=== PATIENT | male | born 1955 | race African-American/Black ===

== ENCOUNTER 2016-08-17 14:01 | Emergency (ER) | payer MEDICARE ==
[2016-08-17] MEDS ORDERED: Bacitracin Zinc 1 Packet ONE (15:36)
--- NOTE | 2016-08-17 16:02 | ERRECORD ---
[facility] EMERGENCY RECORD HPI ABSCESS (15:47 MPUR) CHIEF COMPLAINT: Patient presents for evaluation of pain. HISTORIAN: History provided by patient, stung by something yesterday behind the rt knee. Now painful with swelling. LOCATION: Symptoms are localized. QUALITY: Pain is sharp in nature. TIME COURSE: Sudden onset of symptoms, 20, hours prior to arrival. ASSOCIATED WITH: No associated symptoms. EXACERBATED BY: Patient's condition exacerbated by extension. RELIEVED BY: Patient's condition relieved by nothing, Patient's condition relieved by nothing because patient has not tried anything for relief. ROS (15:58 MPUR) CONSTITUTIONAL: Historian denies fever. EYES: Historian denies eye pain. ENT: Historian denies rhinorrhea. CARDIOVASCULAR: Historian denies chest pain. RESPIRATORY: Historian denies cough. GI: Historian denies diarrhea, Historian denies vomiting. GENITOURINARY MALE: Historian denies dysuria. MUSCULOSKELETAL: Historian denies arthralgias. SKIN: Historian denies rash. NEUROLOGIC: Historian denies seizures. ENDOCRINE: Historian denies skin changes. HEMO/LYMPHATIC: Historian denies easy bruising. PAST MEDICAL HISTORY (14:11 MCBE) MEDICAL HISTORY: Flu vaccine not up to date, Pneumococcal vaccine not up to date, Tetanus immunization up to date, Past medical history includes pulmonary disease, chronic obstructive pulmonary disease. MALE SURGICAL HISTORY: Surgical history of spinal surgery, lumbar, Date of surgery 2006, Notes: L4 <AMP> L5 WITH JIMMY PLACEMENT. PSYCHIATRIC HISTORY: No previous psychiatric history. SOCIAL HISTORY: Patient drinks socially, rarely, Patient denies drug use, Patient has no smoking history. KNOWN ALLERGIES No Known Drug Allergies CURRENT MEDICATIONS (14:09 MCBE) None VITAL SIGNS VITAL SIGNS: BP: 135/80, Pulse: 80, Resp: 18, Temp: 98.4 (Oral), Pain: 9, O2 sat: 98 on Room Air, Time: 08/17/2016 14:11. (14:11 MCBE) &a-1R&a+25V*p+0X*o7140H*c202B*c15G*c2P*p-0X&a-25V&a+1R Name: Derick Castro Mar CANAS : 1955 M60 MedRec: [id number] AcctNum: [id number] Prepared: Samia Aug 17, 2016 16:09 by Interface Page 1 of 3 pMD [facility] EMERGENCY RECORD BP: 130/82, Pulse: 78, Resp: 18, Temp: 98.2, Pain: 5, O2 sat: 100 on ra, Time: 08/17/2016 15:51. (15:51 MCBE) PHYSICAL EXAM CONSTITUTIONAL: Vital signs reviewed, Patient appears non toxic. (15:58 MPUR) HEAD: Head exam included findings of head atraumatic, normocephalic. (15:58 MPUR) EYES: Eye exam included findings of eyelids normal to inspection, Conjunctiva normal, Sclera normal. (15:58 MPUR) ENT: Nose exam normal, no nasal deformity, mucous membranes moist. (15:58 MPUR) NECK: Neck exam included findings of normal range of motion, no ecchymosis. (15:58 MPUR) RESPIRATORY CHEST: Respiratory exam included findings of no respiratory distress, NL Respiratory rate and no increased work of breathing. (15:58 MPUR) LOWER EXTREMITY: 3 cm area of hyperemia with bite in the center of it with 7 mm area of inc swelling around bite. Area tender. (15:59 MPUR) NEURO: Speech normal, alert. (15:58 MPUR) SKIN: dry, and normal in color, no rash. (15:58 MPUR) PSYCHIATRIC: Normal affect, Recent memory normal. (15:58 MPUR) DOCTOR NOTES (15:58 MPUR) TEXT: I have reviewed and agree with nurse's past medical, family, and social history as documented on chart. Pt's vital signs have been reviewed. PROBLEM LIST No recorded problems DIAGNOSIS (15:42 MPUR) FINAL: PRIMARY: infected spider bite. PRESCRIPTION (15:42 MPUR) Bactrim DS: TABLET : 800 mg-160 mg : ORAL : Quantity: 1 Unit: tab(s) Route: ORAL Schedule: 3 times a day Dispense: 15 May substitute. Refills: No Refills . NOTES: No Refills. Bactroban topical ointment: OINTMENT (GRAM) : 2 % : TOPICAL : Quantity: 1 Unit: david Route: TOPICAL Schedule: 3 times a day Dispense: 20 May substitute. Refills: No Refills . NOTES: ^s=No Refills No Refills. DISPOSITION PATIENT: Disposition Type: Discharge, Disposition: *Discharge &a-1R&a+25V*p+0X*q7885X*c202B*c15G*c2P*p-0X&a-25V&a+1R Name: Derick Castro JR : 1955 M60 MedRec: [id number] AcctNum: [id number] Prepared: TueAug 17, 2016 16:09 by Interface Page 2 of 3 pMD [facility] EMERGENCY RECORD Home. (15:42 MPUR) Patient left the department. (15:50 MCBE) Bradley: MCMAGALI=Vanda Guadarrama MPUR=MD Hermelinda, Alexei &a-1R&a+25V*p+0X*m5929B*c202B*c15G*c2P*p-0X&a-25V&a+1R Name: Derick Castro JR : 1955 M60 MedRec: [id number] AcctNum: [id number] Prepared: TueAug 17, 2016 16:09 by Interface Page 3 of 3 pMD MTDD
--- NOTE | 2016-08-17 16:05 | PICIS ---
[facility] EMERGENCY RECORD TRIAGE (TueAug 17, 2016 14:08 MCBE) TRIAGE NOTES: patient reports falling asleep on porch yesterday. felt something bite him. patient believes it might be a spider. (TueAug 17, 2016 14:08 MCBE) PATIENT: NAME: Derick Castro JR, AGE: 60, GENDER: male, : Sat 1955, TIME OF GREET: TueAug 17, 2016 14:02, PREFERRED LANGUAGE: Romansh, ETHNICITY: Not or , ECODE BILLING MAP: [facility], SSN: [id number], Zip Code: [address], KG WEIGHT: 71.21, PHONE: , , , PERSON ID: [id number]. (TueAug 17, 2016 14:08 MCBE) COMPLAINT: POSS SPIDER BITE RIGHT LEG. (TueAug 17, 2016 14:08 MCBE) ADMISSION: URGENCY: 4 Non Urgent, ADMISSION SOURCE: Home, TRANSPORT: CAR, BED: ER -05. (TueAug 17, 2016 14:08 MCBE) SIRS SCORING: Heart Rate 55-109 (0), Temp range 96.8-101.1 (0), respiratory rate 12-24 (0), Mental Status altered: no (0), Yes, Infection or Suspected Infection. (14:11 MCBE) TRIAGE SCREENING: Patient denies suicidal ideation, Patient denies presence of domestic violence. (14:11 MCBE) PROVIDERS: TRIAGE NURSE: Vanda Guadarrama. (TueAug 17, 2016 14:08 MCBE) PREVIOUS VISIT ALLERGIES: No Known Drug Allergies. (TueAug 17, 2016 14:08 MCBE) No Known Drug Allergies. (14:11 MCBE) KNOWN ALLERGIES No Known Drug Allergies CURRENT MEDICATIONS (14:09 MCBE) None VITAL SIGNS VITAL SIGNS: BP: 135/80, Pulse: 80, Resp: 18, Temp: 98.4 (Oral), Pain: 9, O2 sat: 98 on Room Air, Time: 08/17/2016 14:11. (14:11 MCBE) BP: 130/82, Pulse: 78, Resp: 18, Temp: 98.2, Pain: 5, O2 sat: 100 on ra, Time: 08/17/2016 15:51. (15:51 BE) NURSING ASSESSMENT: SKIN (14:15 BE) CONSTITUTIONAL: Complex assessment performed, Patient arrives ambulatory, Gait steady, History obtained from patient, Patient appears comfortable, Patient cooperative, Patient alert, Oriented to person, place and time, Skin warm, Skin dry, Skin normal in color, Mucous membranes pink, Mucous membranes moist, Patient is well-groomed. SKIN: Skin assessment findings include skin warm, Skin dry, Skin normal in color, Inspection findings include bite rucker, to back of right knee, from spider, Inspection findings include: No pressure ulcer to the shoulder, Inspection findings include no pressure ulcer to the elbow, Inspection findings &a-1R&a+25V*p+0X*q8923H*c202B*c15G*c2P*p-0X&a-25V&a+1R Name: Derick Castro JR : 1955 M60 MedRec: [id number] AcctNum: [id number] Prepared: Samia Aug 17, 2016 16:15 by Interface Page 1 of 5 pMD [facility] EMERGENCY RECORD include no pressure ulcers to the hip, Inspection findings include no pressure ulcer to the sacrum, Inspection findings include no pressure ulcer to the heel, Inspection findings include no pressure ulcer, Inspection findings include no pressure ulcer, Inspection findings include redness, to to site of back right knee, Inspection findings include swelling, to minor swelling to site. NURSING PROCEDURE: DISCHARGE NOTE (15:51 [facility]) DISCHARGE: Patient discharged to home, ambulating without assistance, driving self, unaccompanied, Summary of Care printed/ provided, Discharge instructions given to patient, Simple or moderate discharge teaching performed, by VANDA MEDEL, EXPLAINED DISCHARGE INSTRUCTIONS. INSTRUCTED TO RETURN IF S/S WORSEN. INSTRUCTED TO COMPLETE ALL ANITBIOTICS. INFORMED PATIENT PRESCRIPTION CAN BE FILLED AT ANY PHARMACY, Prescriptions given and instructions on side effects given, Name of prescription(s) given: bactrim, Above person(s) verbalized understanding of discharge instructions and follow-up care, Patient treated and evaluated by physician. BELONGINGS: Belongings and valuables with patient upon arrival to the Emergency Department include:, Belongings and valuables with patient at time of discharge include:, belt, pants, shirt, shoes, socks, cellular phone, Belongings remain with patient, Valuables remain with patient. VITAL SIGNS: BP: 130, / 82, Pulse: 78, Resp: 18, Temp: 98.2, Pain: 5, O2 sat: 100, on: ra, Time: 1545. NURSING PROCEDURE: DRESSING (15:20 MCBE) PATIENT IDENTIFIER: Patient actively involved in identification process, Patient's identity verified by patient stating name, Patient's identity verified by patient stating date, Patient's identity verified by hospital ID bracelet. DRESSING: Dressing indicated to promote wound healing, Simple dressing, applied, No drainage present, no drainage from site, to back of right knee, Notes: band aide. HPI ABSCESS (15:47 MPUR) CHIEF COMPLAINT: Patient presents for evaluation of pain. HISTORIAN: History provided by patient, stung by something yesterday behind the rt knee. Now painful with swelling. LOCATION: Symptoms are localized. QUALITY: Pain is sharp in nature. TIME COURSE: Sudden onset of symptoms, 20, hours prior to arrival. ASSOCIATED WITH: No associated symptoms. EXACERBATED BY: Patient's condition exacerbated by extension. RELIEVED BY: Patient's condition relieved by nothing, Patient's condition relieved by nothing because patient has not tried anything for relief. &a-1R&a+25V*p+0X*t2588A*c202B*c15G*c2P*p-0X&a-25V&a+1R Name: Derick Castro JR : 1955 M60 MedRec: [id number] AcctNum: [id number] Prepared: Samia Aug 17, 2016 16:15 by Interface Page 2 of 5 pMD [facility] EMERGENCY RECORD ROS (15:58 MPUR) CONSTITUTIONAL: Historian denies fever. EYES: Historian denies eye pain. ENT: Historian denies rhinorrhea. CARDIOVASCULAR: Historian denies chest pain. RESPIRATORY: Historian denies cough. GI: Historian denies diarrhea, Historian denies vomiting. GENITOURINARY MALE: Historian denies dysuria. MUSCULOSKELETAL: Historian denies arthralgias. SKIN: Historian denies rash. NEUROLOGIC: Historian denies seizures. ENDOCRINE: Historian denies skin changes. HEMO/LYMPHATIC: Historian denies easy bruising. PAST MEDICAL HISTORY (14:11 MCBE) MEDICAL HISTORY: Flu vaccine not up to date, Pneumococcal vaccine not up to date, Tetanus immunization up to date, Past medical history includes pulmonary disease, chronic obstructive pulmonary disease. MALE SURGICAL HISTORY: Surgical history of spinal surgery, lumbar, Date of surgery 2006, Notes: L4 <AMP> L5 WITH JIMMY PLACEMENT. PSYCHIATRIC HISTORY: No previous psychiatric history. SOCIAL HISTORY: Patient drinks socially, rarely, Patient denies drug use, Patient has no smoking history. PHYSICAL EXAM CONSTITUTIONAL: Vital signs reviewed, Patient appears non toxic. (15:58 MPUR) HEAD: Head exam included findings of head atraumatic, normocephalic. (15:58 MPUR) EYES: Eye exam included findings of eyelids normal to inspection, Conjunctiva normal, Sclera normal. (15:58 MPUR) ENT: Nose exam normal, no nasal deformity, mucous membranes moist. (15:58 MPUR) NECK: Neck exam included findings of normal range of motion, no ecchymosis. (15:58 MPUR) RESPIRATORY CHEST: Respiratory exam included findings of no respiratory distress, NL Respiratory rate and no increased work of breathing. (15:58 MPUR) LOWER EXTREMITY: 3 cm area of hyperemia with bite in the center of it with 7 mm area of inc swelling around bite. Area tender. (15:59 MPUR) NEURO: Speech normal, alert. (15:58 MPUR) SKIN: dry, and normal in color, no rash. (15:58 MPUR) PSYCHIATRIC: Normal affect, Recent memory normal. (15:58 MPUR) &a-1R&a+25V*p+0X*b6658Q*c202B*c15G*c2P*p-0X&a-25V&a+1R Name: Derick Castro : 1955 M60 MedRec: [id number] AcctNum: [id number] Prepared: TueAug 17, 2016 16:15 by Interface Page 3 of 5 pMD [facility] EMERGENCY RECORD EVENTS TRANSFER: Triage to Emergency Emergency Room -05. (TueAug 17, 2016 14:08 MCBE) Removed from Emergency Emergency Room -05. (15:50 MCBE) DOCTOR NOTES (15:58 MPUR) TEXT: I have reviewed and agree with nurse's past medical, family, and social history as documented on chart. Pt's vital signs have been reviewed. INCISION AND DRAINAGE (16:00 MPUR) INCISION AND DRAINAGE: Patient identification confirmed, Emergent consent implied, Incision and drainage indicated for cutaneous abscess, There are no contraindications, 1% Lidocaine with epinephrine used, Incision and drainage of knee abscess, Explored for loculations, Drained pus, After procedure, wound dressed, After procedure, neurovascular status normal, There were no complications, Patient tolerated the procedure well, prpped with betadine, injected with .5 ml. 19 gu needle used to open site, small amount of necrotic tissue and pus removed. wound dressed. PROBLEM LIST No recorded problems DIAGNOSIS (15:42 MPUR) FINAL: PRIMARY: infected spider bite. DISPOSITION PATIENT: Disposition Type: Discharge, Disposition: *Discharge Home. (15:42 MPUR) Patient left the department. (15:50 MCBE) INSTRUCTION (15:44 MPUR) DISCHARGE: ABSCESS, I AND D. FOLLOWUP: Chandler JAY, CHAZ, Internal Medicine, [address] [place] [id number], [phone]. SPECIAL: Take antibiotics. Apply ointment 3 times a day. Follow-up with your primary physician in 4-5 days as needed Tylenol or Advil for Pain. PRESCRIPTION (15:42 MPUR) Bactrim DS: TABLET : 800 mg-160 mg : ORAL : Quantity: 1 Unit: tab(s) Route: ORAL Schedule: 3 times a day Dispense: 15 May substitute. Refills: No Refills . NOTES: No Refills. Bactroban topical ointment: OINTMENT (GRAM) : 2 % : TOPICAL : Quantity: 1 Unit: david Route: TOPICAL Schedule: 3 times a day Dispense: 20 May substitute. Refills: No Refills . &a-1R&a+25V*p+0X*l9749W*c202B*c15G*c2P*p-0X&a-25V&a+1R Name: Derick Castro JR : 1955 M60 MedRec: [id number] AcctNum: [id number] Prepared: TueAug 17, 2016 16:15 by Interface Page 4 of 5 pMD [facility] EMERGENCY RECORD NOTES: ^s=No Refills No Refills. IMAGING *SUPPLY CHARGE SHEET: Image captured from scanner. (15:53 MCBE) *DISCHARGE INSTRUCTIONS RECEIPT: Image captured from scanner. (15:53 MCBE) Page 2 added. Image captured from scanner. (15:54 MCBE) ADMIN (16:04 MPUR) DIGITAL SIGNATURE: MD Shen Marcus. Bradley: MCBE=Vanda Guadarrama MPUR=MD Shen Marcus &a-1R&a+25V*p+0X*r5375Y*c202B*c15G*c2P*p-0X&a-25V&a+1R Name: Derick Castro JR : 1955 M60 MedRec: [id number] AcctNum: [id number] Prepared: TueAug 17, 2016 16:15 by Interface Page 5 of 5 pMD MTDD
== END 2016-08-17 15:56 | disposition home or self-care (01) ==
LOC: NAV ERS 14:01
DX: S80.261A Insect bite (nonvenomous), right knee, initial encounter (principal); L08.9 Local infection of the skin and subcutaneous tissue, unspecified; J44.9 Chronic obstructive pulmonary disease, unspecified; W57.XXXA Bitten or stung by nonvenomous insect and other nonvenomous arthropods, initial encounter
CPT/HCPCS: 27301; 36415; 80061

== ENCOUNTER 2016-08-17 14:40 | Outpatient (CLI) | payer MEDICARE | END 2016-08-17 14:41 | disposition home or self-care (01) | LOC: NAVSJIPCSP 14:40 | PROVIDERS: ATTEND Internal Medicine | DX: M54.5 Low back pain (principal); Z79.899 Other long term (current) drug therapy; E78.5 Hyperlipidemia, unspecified | CPT/HCPCS: 36415; 80061 ==

== ENCOUNTER 2016-08-21 14:07 | Emergency (ER) | payer MEDICARE ==
[2016-08-21] MEDS ORDERED: traMADol HCl 50 MG TAB ONE (14:25)
[2016-08-21] MEDS ORDERED: Clindamycin 150 MG CAP ONE (14:26)
[2016-08-21] MEDS ORDERED: Lidocaine 1% 20 ML MDV ONE (14:26)
--- NOTE | 2016-08-21 14:58 | ERRECORD ---
[facility] EMERGENCY RECORD HPI ABSCESS (14:24 RW) CHIEF COMPLAINT: Patient presents for evaluation of swelling, Patient presents for evaluation of pain. HISTORIAN: History provided by patient, seen 3 days ago for spider bite; Rx Bactrim given. Site now "worse". LOCATION: Symptoms are localized, most severe to popliteal fossa right knee. QUALITY: Described as similar to previous episodes. SEVERITY: Maximum severity of symptoms mild, Currently symptoms are mild, Maximum severity of pain rated as 9/10, Current severity of pain rated as 9/10, pt calm, NAD. TIME COURSE: Patient unable to describe onset of symptoms, There has been no change in the patient's symptoms over time. ASSOCIATED WITH: No associated symptoms. EXACERBATED BY: Patient's condition exacerbated by nothing. RELIEVED BY: Patient's condition relieved by nothing. TETANUS: Tetanus status up to date. ROS (14:25 RW) CONSTITUTIONAL: Negative constitutional review of systems. EYES: Negative eye review of systems. ENT: Negative ears, nose, throat review of systems. CARDIOVASCULAR: Negative cardiovascular review of systems. RESPIRATORY: Negative respiratory review of systems. GI: Negative gastrointestinal review of systems. GENITOURINARY MALE: Negative genitourinary review of systems. MUSCULOSKELETAL: Negative musculoskeletal review of systems. SKIN: Negative skin review of systems. NEUROLOGIC: Negative neurologic review of systems. ENDOCRINE: Negative endocrine review of systems. HEMO/LYMPHATIC: Normal hematologic/lymphatic system review. ALLERGIC/IMMUNOLOGIC: Normal allergy/immunologic system review. PSYCHIATRIC: Negative psychiatric review of systems. NOTES: All systems reviewed, negative except as described above. PAST MEDICAL HISTORY (14:17 [facility] [place]) MEDICAL HISTORY: Flu vaccine not up to date, Pneumococcal vaccine not up to date, Tetanus immunization up to date, Past medical history includes pulmonary disease, chronic obstructive pulmonary disease. MALE SURGICAL HISTORY: Surgical history of spinal surgery, lumbar, Date of surgery 2006, Notes: L4 <LT>AMP> L5 WITH JIMMY PLACEMENT. PSYCHIATRIC HISTORY: No previous psychiatric history. SOCIAL HISTORY: Patient drinks socially, rarely, Patient denies drug use, Patient has no smoking history. KNOWN ALLERGIES No Known Drug Allergies &a-1R&a+25V*p+0X*p1262N*c202B*c15G*c2P*p-0X&a-25V&a+1R Name: Derick Castro JR : 1955 M60 MedRec: [id number] AcctNum: [id number] Prepared: Sat Aug 21, 2016 15:22 by Interface Page 1 of 3 pMD [facility] EMERGENCY RECORD CURRENT MEDICATIONS (14:15 MCBE) Bactrim DS: TABLET : Strength - 800 mg-160 mg : ORAL Patient Dose: 1 tab(s) Oral 3 times a day. Bactroban: OINTMENT (GRAM) : Strength - 2 % : TOPICAL Patient Dose: 1 david TOPICAL 3 times a day. VITAL SIGNS (14:15 MCBE) VITAL SIGNS: BP: 136/77, Pulse: 66, Resp: 18, Temp: 96.3 (Oral), Pain: 9, O2 sat: 99 on Room Air, Time: 08/21/2016 14:15. PHYSICAL EXAM (14: RWAG) CONSTITUTIONAL: Vital signs reviewed. HEAD: Head exam normal. EYES: Eye exam normal. ENT: ENT exam normal. NECK: Neck exam normal. RESPIRATORY CHEST: Respiratory and chest exam normal. CARDIOVASCULAR: Cardiovascular assessment normal. ABDOMEN MALE: Abdominal exam normal. BACK: Back exam normal. UPPER EXTREMITY: Upper extremity exam normal. LOWER EXTREMITY: Lower extremity exam included findings of inspection abnormal, 1cm abscess R popliteal fossa, Range of motion normal, Motor strength normal, Sensation intact, Posterior tibial pulse normal, Pedal pulse normal, Neptali's negative. NEURO: Neuro exam normal, Lake coma scale 15, Neuro exam findings include patient oriented to person, place and time. SKIN: Skin exam normal. LYMPHATIC: Lymphatic exam normal. PSYCHIATRIC: Psychiatric exam normal. MEDICATION ADMINISTRATION SUMMARY Drug Name: *clindamycin HCl, Dose Ordered: 1 cap(s), Route: Oral, Status: Given, Time: 14:29 08/21/2016, Drug Name: *Ultram, Dose Ordered: 2 tab(s), Route: Oral, Status: Given, Time: 14:08/21/2016, *Additional information available in notes, Detailed record available in Medication Service section. DOCTOR NOTES (: RWAG) TEXT: R popliteal prepped and draped w betadine. 1% lidocaine used for local. #11 blade used to incise and drain abscess, moderate pus drained, packed with iodoform. PROBLEM LIST No recorded problems &a-1R&a+25V*p+0X*c0643D*c202B*c15G*c2P*p-0X&a-25V&a+1R Name: Derick Castro JR : 1955 M60 MedRec: [id number] AcctNum: [id number] Prepared: Sat Aug 21, 2016 15:22 by Interface Page 2 of 3 pMD [facility] EMERGENCY RECORD DIAGNOSIS (14:32 RWAG) FINAL: PRIMARY: spider bite. PRESCRIPTION clindamycin HCl: CAPSULE : 300 mg : ORAL : Quantity: 1 Unit: cap(s) Route: ORAL Schedule: every 12 hours Dispense: 10 Unit: cap(s) May substitute. Refills: No Refills . (14:28 RWAG) NOTES: No Refills. (14:28 RWAG) Ultram: TABLET : 50 mg : ORAL : Quantity: 2 Unit: tab(s) Route: ORAL Schedule: every 8 hours PRN Dispense: 20 Unit: mg May substitute. Refills: No Refills . (14:29 RWAG) NOTES: No Refills. (14:29 RWAG) DISPOSITION PATIENT: Disposition Type: Discharge, Disposition: *Discharge Home, Disposition Transport: Car, Condition: Improved. (14:32 RWAG) Patient left the department. (14:55 JPAR) Bradley: JYOTHI=GIANFRANCO Danielle Jason MCMAGALI=Vanda Guadarrama RWAG=MD Sourav, Shakeel &a-1R&a+25V*p+0X*g4486L*c202B*c15G*c2P*p-0X&a-25V&a+1R Name: Derick Castro JR : 1955 M60 MedRec: [id number] AcctNum: [id number] Prepared: Sat Aug 21, 2016 15:22 by Interface Page 3 of 3 pMD MTDD
--- NOTE | 2016-08-21 15:10 | PICIS ---
[facility] EMERGENCY RECORD TRIAGE (14:14 MCBE) TRIAGE NOTES: returned to ER due to infection behind not improving. patient reports taking antibiotics. (14:14 MCBE) PATIENT: NAME: Derick Castro JR, AGE: 60, GENDER: male, : Sat 1955, TIME OF GREET: Sat Aug 21, 2016 14:07, PREFERRED LANGUAGE: Latvian, ETHNICITY: Not or , ECODE BILLING MAP: [facility], SSN: [id number], Zip Code: [address], KG WEIGHT: 71.21, PHONE: , , , PERSON ID: [id number]. (14:14 MCBE) COMPLAINT: RIGHT LEG INSECT BITE. (14:14 MCBE) ADMISSION: URGENCY: 4 Non Urgent, ADMISSION SOURCE: Home, TRANSPORT: CAR, BED: ER -03. (14:14 MCBE) ASSESSMENT: Assessment: noted to be swollen behind leg. no redness or drainage. (14:17 MCBE) IMMUNIZATIONS: Flu vaccine not up to date, Tetanus not up to date, Pneumococcal vaccine not up to date. (14:17 MCBE) SIRS SCORING: Heart Rate 55-109 (0), Temp range 96.8-101.1 (0), respiratory rate 12-24 (0), Mental Status altered: no (0), Infection or Suspected Infection: No. (14:17 MCBE) TRIAGE SCREENING: Patient denies suicidal ideation, Patient denies presence of domestic violence. (14:17 MCBE) PROVIDERS: TRIAGE NURSE: Vanda Guadarrama. (14:14 MCBE) VITAL SIGNS: BP 136/77, Pulse 66, Resp 18, Temp 96.3, (Oral), Pain 9, O2 Sat 99, on Room Air, Time 08/21/2016 14:15. (14:15 MCBE) PREVIOUS VISIT ALLERGIES: No Known Drug Allergies. (14:14 MCBE) No Known Drug Allergies. (14:17 MCBE) KNOWN ALLERGIES No Known Drug Allergies CURRENT MEDICATIONS (14:15 MCBE) Bactrim DS: TABLET : Strength - 800 mg-160 mg : ORAL Patient Dose: 1 tab(s) Oral 3 times a day. Bactroban: OINTMENT (GRAM) : Strength - 2 % : TOPICAL Patient Dose: 1 david TOPICAL 3 times a day. VITAL SIGNS (14:15 MCBE) VITAL SIGNS: BP: 136/77, Pulse: 66, Resp: 18, Temp: 96.3 (Oral), Pain: 9, O2 sat: 99 on Room Air, Time: 08/21/2016 14:15. NURSING ASSESSMENT: EXTREMITY LOWER (14:18 MCBE) CONSTITUTIONAL: Complex assessment performed, Patient arrives ambulatory, Gait steady, History obtained from patient, Patient appears comfortable, Patient cooperative, Patient alert, Oriented to person, place and time, Skin warm, Skin dry, Skin normal in color, Mucous membranes pink, Mucous membranes moist, Patient is &a-1R&a+25V*p+0X*p4548S*c202B*c15G*c2P*p-0X&a-25V&a+1R Name: Derick Castro : 1955 M60 MedRec: [id number] AcctNum: [id number] Prepared: Sat Aug 21, 2016 15:28 by Interface Page 1 of 6 pMD [facility] EMERGENCY RECORD well-groomed. LEFT LOWER EXTREMITY: Left lower extremity assessment findings include capillary refill less than 2 seconds, Skin color normal, Skin temperature warm, Distal sensation intact, Muscle tone normal, Inspection findings include no pressure ulcers to the hip, Inspection findings include no pressure ulcer to the sacrum, Inspection findings include no pressure ulcer to the heel, Inspection findings include no pressure ulcer. RIGHT LOWER EXTREMITY: Right lower extremity assessment findings include capillary refill less than 2 seconds, Skin color normal, Skin temperature warm, Distal sensation intact, Muscle tone normal, Inspection findings include no pressure ulcers to the hip, Inspection findings include no pressure ulcer to the sacrum, Inspection findings include no pressure ulcer to the heel, Inspection findings include no redness, Inspection findings include swelling, MINOR SWELLING TO BACK OF KNEE, Notes: WOUND SHOWS SIGNS OF APPROPRIATELY HEALING. NURSING PROCEDURE: DISCHARGE NOTE (14:48 JPAR) DISCHARGE: Patient discharged to home, ambulating without assistance, driving self, unaccompanied, Summary of Care printed/ provided, Patient requested and was provided an electronic copy of Discharge Instructions, Transition record given to patient, Discharge instructions given to patient, Simple or moderate discharge teaching performed, Prescriptions given and instructions on side effects given, Name of prescription(s) given: Clinda/ Tramadol, Medication reconciliation form given, Above person(s) verbalized understanding of discharge instructions and follow-up care, Patient treated and evaluated by physician. BELONGINGS: Belongings and valuables with patient at time of discharge include:, Belongings remain with patient, Valuables remain with patient. SAFETY: Side rails up, Cart/Stretcher in lowest position, Call light within reach, Hospital ID band on. NURSING PROCEDURE: INCISION AND DRAINAGE (14:35 JPAR) PATIENT IDENTIFIER: Patient actively involved in identification process, Patient's identity verified by patient stating name, Patient's identity verified by patient stating date, Patient's identity verified by hospital ID bracelet, Patient's identity verified by family member. TIMEOUT: Prior to procedure, correct patient verified by, Correct procedure verified, Correct site verified, Correct equipment utilized, Timeout not performed due to emergent nature of procedure. I & D: Incision and drainage indicated to promote healing, Incision and drainage indicated for pain control, Incision and drainage performed, to Behind R Knee, small amount, of purulent fluid drained, Simple dressing applied, using telfa pad, packed with 1/4 inch iodoform packing, wrapped in 3 inch conform bandage, Last tetanus shot received less than 5 years ago, Notes: &a-1R&a+25V*p+0X*[id number]*c202B*c15G*c2P*p-0X&a-25V&a+1R Name: Derick Castro JR : 1955 M60 MedRec: [id number] AcctNum: [id number] Prepared: Sat Aug 21, 2016 15:28 by Interface Page 2 of 6 pMD [facility] EMERGENCY RECORD Site cleaned with hibiclens then telfa applied and reinforced with 2X2's and wrapped with 3 inch shawna then coban used to secure in place. FOLLOW-UP: After procedure, patient rates pain as 1 out of 10, After procedure, dressing dry and intact. SAFETY: Side rails up, Cart/Stretcher in lowest position, Call light within reach, Hospital ID band on. NURSING PROCEDURE: NURSE NOTES (14:33 JPAR) NURSES NOTES: Notes: Lido, Lac tray, and Iodoform 1/4 inch at bedside for MD request. ORDER DETAILS Order Name: chart element #1, Status: Active, Time: 14:35 08/21/2016, User: System, - Ordered for: MD Benjamin Richard, - Entered by: GIANFRANCO Danielle Jason - Sat Aug 21, 2016 14:35, - Quantity: 1, Order Name: chart element #4, Status: Active, Time: 14:35 08/21/2016, User: System, - Ordered for: MD Benjamin Richard, - Entered by: GIANFRANCO Danielle Jason - Sat Aug 21, 2016 14:35, - Quantity: 1, Order Name: Miscellaneous Nurse Order(s), Status: Done, Time: 14:24 08/21/2016, User: AppTrigger, - Ordered for: MD Benjamin Richard, - Entered by: MD Benjamin Richard - Sat Aug 21, 2016 14:22, - Quantity: 1. MEDICATION ADMINISTRATION SUMMARY Drug Name: *clindamycin HCl, Dose Ordered: 1 cap(s), Route: Oral, Status: Given, Time: 14:29 08/21/2016, Drug Name: *Ultram, Dose Ordered: 2 tab(s), Route: Oral, Status: Given, Time: 14:29 08/21/2016, *Additional information available in notes, Detailed record available in Medication Service section. MEDICATION SERVICE (14:29 [facility]) clindamycin HCl: Order: clindamycin HCl - Dose: 1 cap(s) : Oral Schedule: Now Notes: 300 mg Ordered by: Shakeel Benjamin MD Entered by: Shakeel Benjamin MD Sat Aug 21, 2016 14:23 , Acknowledged by: Vanda Guadarrama Sat Aug 21, 2016 14:24 Documented as given by: Miguel Danielle RN Sat Aug 21, 2016 14:29 Patient, Medication, Dose, Route and Time verified prior to administration. Patient appears Awake and alert- acceptable, Correct patient, time, &a-1R&a+25V*p+0X*m2921W*c202B*c15G*c2P*p-0X&a-25V&a+1R Name: Derick Castro JR : 1955 M60 MedRec: [id number] AcctNum: [id number] Prepared: Sat Aug 21, 2016 15:28 by Interface Page 3 of 6 pMD [facility] EMERGENCY RECORD route, dose and medication confirmed prior to administration, Patient advised of actions and side-effects prior to administration, Allergies confirmed and medications reviewed prior to administration, Patient in position of comfort, Side rails up, Cart in lowest position, Call light in reach. Ultram: Order: Ultram (tramadol HCl) - Dose: 2 tab(s) : Oral Schedule: Now Notes: 100 mg Ordered by: Shakeel Benjamin MD Entered by: Shakeel Benjamin MD Sat Aug 21, 2016 14:23 , Acknowledged by: Vanda Guadarrama Sat Aug 21, 2016 14:24 Documented as given by: Miguel Danielle RN Sat Aug 21, 2016 14:29 Patient, Medication, Dose, Route and Time verified prior to administration. Patient appears Awake and alert- acceptable, Correct patient, time, route, dose and medication confirmed prior to administration, Patient advised of actions and side-effects prior to administration, Allergies confirmed and medications reviewed prior to administration, Patient in position of comfort, Side rails up, Cart in lowest position, Call light in reach. HPI ABSCESS (14:24 RWAG) CHIEF COMPLAINT: Patient presents for evaluation of swelling, Patient presents for evaluation of pain. HISTORIAN: History provided by patient, seen 3 days ago for spider bite; Rx Bactrim given. Site now "worse". LOCATION: Symptoms are localized, most severe to popliteal fossa right knee. QUALITY: Described as similar to previous episodes. SEVERITY: Maximum severity of symptoms mild, Currently symptoms are mild, Maximum severity of pain rated as 9/10, Current severity of pain rated as 9/10, pt calm, NAD. TIME COURSE: Patient unable to describe onset of symptoms, There has been no change in the patient's symptoms over time. ASSOCIATED WITH: No associated symptoms. EXACERBATED BY: Patient's condition exacerbated by nothing. RELIEVED BY: Patient's condition relieved by nothing. TETANUS: Tetanus status up to date. ROS (14:25 RWAG) CONSTITUTIONAL: Negative constitutional review of systems. EYES: Negative eye review of systems. ENT: Negative ears, nose, throat review of systems. CARDIOVASCULAR: Negative cardiovascular review of systems. RESPIRATORY: Negative respiratory review of systems. GI: Negative gastrointestinal review of systems. GENITOURINARY MALE: Negative genitourinary review of systems. MUSCULOSKELETAL: Negative musculoskeletal review of systems. &a-1R&a+25V*p+0X*e4489Q*c202B*c15G*c2P*p-0X&a-25V&a+1R Name: Derick Castro JR : 1955 M60 MedRec: [id number] AcctNum: [id number] Prepared: Sat Aug 21, 2016 15:28 by Interface Page 4 of 6 pMD [facility] EMERGENCY RECORD SKIN: Negative skin review of systems. NEUROLOGIC: Negative neurologic review of systems. ENDOCRINE: Negative endocrine review of systems. HEMO/LYMPHATIC: Normal hematologic/lymphatic system review. ALLERGIC/IMMUNOLOGIC: Normal allergy/immunologic system review. PSYCHIATRIC: Negative psychiatric review of systems. NOTES: All systems reviewed, negative except as described above. PAST MEDICAL HISTORY (14:17 MCBE) MEDICAL HISTORY: Flu vaccine not up to date, Pneumococcal vaccine not up to date, Tetanus immunization up to date, Past medical history includes pulmonary disease, chronic obstructive pulmonary disease. MALE SURGICAL HISTORY: Surgical history of spinal surgery, lumbar, Date of surgery 2006, Notes: L4 <LT>AMP> L5 WITH JIMMY PLACEMENT. PSYCHIATRIC HISTORY: No previous psychiatric history. SOCIAL HISTORY: Patient drinks socially, rarely, Patient denies drug use, Patient has no smoking history. PHYSICAL EXAM (14:26 RWAG) CONSTITUTIONAL: Vital signs reviewed. HEAD: Head exam normal. EYES: Eye exam normal. ENT: ENT exam normal. NECK: Neck exam normal. RESPIRATORY CHEST: Respiratory and chest exam normal. CARDIOVASCULAR: Cardiovascular assessment normal. ABDOMEN MALE: Abdominal exam normal. BACK: Back exam normal. UPPER EXTREMITY: Upper extremity exam normal. LOWER EXTREMITY: Lower extremity exam included findings of inspection abnormal, 1cm abscess R popliteal fossa, Range of motion normal, Motor strength normal, Sensation intact, Posterior tibial pulse normal, Pedal pulse normal, Neptali's negative. NEURO: Neuro exam normal, Lake coma scale 15, Neuro exam findings include patient oriented to person, place and time. SKIN: Skin exam normal. LYMPHATIC: Lymphatic exam normal. PSYCHIATRIC: Psychiatric exam normal. EVENTS TRANSFER: Triage to Emergency Emergency Room -03. (Sat Aug 21, 2016 14:14 BE) Removed from Emergency Emergency Room -03. (14:55 JPAR) DOCTOR NOTES (14:29 RWAG) TEXT: R popliteal prepped and draped w betadine. 1% lidocaine used for local. #11 blade used to incise and drain abscess, moderate pus drained, packed with iodoform. &a-1R&a+25V*p+0X*e2632W*c202B*c15G*c2P*p-0X&a-25V&a+1R Name: Derick Castro JR : 1955 M60 MedRec: [id number] AcctNum: [id number] Prepared: Sat Aug 21, 2016 15:28 by Interface Page 5 of 6 pMD [facility] EMERGENCY RECORD PROBLEM LIST No recorded problems DIAGNOSIS (14:32 RWAG) FINAL: PRIMARY: spider bite. DISPOSITION PATIENT: Disposition Type: Discharge, Disposition: *Discharge Home, Disposition Transport: Car, Condition: Improved. (14:32 RWAG) Patient left the department. (14:55 JPAR) INSTRUCTION (14:32 RWAG) DISCHARGE: ABSCESS (, INCISION AND DRAINAGE). FOLLOWUP: Chandler JAY, CHAZ, Internal Medicine, [address] [place] [id number], [phone]. SPECIAL: Follow-up with your PCP. remove pack in 24 hours. PRESCRIPTION clindamycin HCl: CAPSULE : 300 mg : ORAL : Quantity: 1 Unit: cap(s) Route: ORAL Schedule: every 12 hours Dispense: 10 Unit: cap(s) May substitute. Refills: No Refills . (14:28 RWAG) NOTES: No Refills. (14:28 RWAG) Ultram: TABLET : 50 mg : ORAL : Quantity: 2 Unit: tab(s) Route: ORAL Schedule: every 8 hours PRN Dispense: 20 Unit: mg May substitute. Refills: No Refills . (14:29 RWAG) NOTES: No Refills. (14:29 RWAG) IMAGING (14:51 JPAR) *SUPPLY CHARGE SHEET: Image captured from scanner. *DISCHARGE INSTRUCTIONS RECEIPT: Image captured from scanner. ADMIN DIGITAL SIGNATURE: Paramore, RN, Miguel. (14:57 JYOTHI) MD Benjamin Richard. (15:16 RWDARIEN) Bradley: JYOTHI=GIANFRANCO Danielle Jason MCBE=Vanda Guadarrama RWAG=MD Benjamin Richard &a-1R&a+25V*p+0X*k9974O*c202B*c15G*c2P*p-0X&a-25V&a+1R Name: Derick Castro JR : 1955 M60 MedRec: [id number] AcctNum: [id number] Prepared: Chau Aug 21, 2016 15:28 by Interface Page 6 of 6 pMD MTDD
== END 2016-08-21 14:48 | disposition home or self-care (01) ==
LOC: NAV ERS 14:07
DX: T63.301A Toxic effect of unspecified spider venom, accidental (unintentional), initial encounter (principal); L02.415 Cutaneous abscess of right lower limb; J44.9 Chronic obstructive pulmonary disease, unspecified
CPT/HCPCS: 99283; J2001

== ENCOUNTER 2017-03-14 10:13 | Outpatient (CLI) | payer MEDICARE ==
[2017-03-14 12:43] LABS: #Basophils 0.1 thou/uL (0.0-0.2); #Lymphocytes 0.8 thou/uL (1.20-3.40); #Monocytes 0.3 thou/uL (0.11-0.59); #Neutrophils 1.8 thou/uL (1.40-6.50); %Basophils 1.7 % (0.0-1.0); %Eosinophils 1.5 % (0.0-10.0); %Lymphocytes 25.4 % (21.0-51.0); %Monocytes 10.7 % (0.0-10.0); %Neutrophils 60.7 % (42.0-75.0); Hemoglobin 13.2 g/dL (14.0-18.0); Mean Corpuscular HGB CONC 31.6 g/dL (32.0-36.0); Mean Corpuscular Hemoglobin 28.2 pg (27.0-31.0); Mean Corpuscular Volume 89.4 fl (80.0-94.0); Mean Platelet Volume 8.8 fL (7.4-10.4); Platelet Count 154 thou/uL (130-400); RBC Distribution Width 12.8 % (11.5-14.5); Red Blood Cell (RBC) Count 4.68 mill/uL (4.70-6.10)
[2017-03-14 13:43] LABS: Bilirubin Negative (Negative); Blood, Urine Trace (Negative); Clarity Clear (Clear); Glucose, Urine (Dipstick) Negative (Negative); Leukocyte Negative (Negative); Nitrite Negative (Negative); Protein, Urine (Dipstick) Negative (Neg-Trace); Specific Gravity, Urine 1.025 (1.005-1.030); Urobilinogen 0.2 mg/dL (0.2-1.0)
[2017-03-14 14:10] LABS: ALT (SGPT) 13 U/L (8-55); AST (SGOT) 26 U/L (5-34); Albumin 4.1 g/dL (3.5-5.0); Alkaline Phosphatase 67 U/L (40-150); Anion Gap 16 mmol/L (10-20); BUN (Urea Nitrogen) 12 mg/dL (8.4-25.7); Bilirubin, Total 0.4 mg/dL (0.2-1.2); Calc. Creatinine Clearance 0 mL/min (70-130); Carbon Dioxide 24 mmol/L (22-29); Cardiac Risk 2.2 (Less than 4.5); Chloride 106 mmol/L (98-107); Cholesterol 196 mg/dl (< 200 Desired); Estimated GFR-MDRD 71; Globulin 3.5 g/dL (2.4-3.5); Glucose 69 mg/dL (70-105); HDL Cholesterol 89 mg/dL (>60 Neg Risk); LDL Cholesterol, Calculated 100 mg/dL; Potassium 4.4 mmol/L (3.5-5.1); Protein, Total 7.6 g/dL (6.0-8.3); Sodium 142 mmol/L (136-145); Triglycerides 37 mg/dL (Less than 150)
[2017-03-14 15:58] LABS: Bacteria/HPF None Seen HPF (None Seen); RBC/HPF 0-3 HPF (0-3); Squamous Epithelial 0-3 HPF (0-3); WBC/HPF None Seen HPF (0-3)
== END 2017-03-14 10:14 | disposition home or self-care (01) ==
LOC: NAVSJIPCSP 10:13
PROVIDERS: ATTEND Internal Medicine
DX: Z12.5 Encounter for screening for malignant neoplasm of prostate (principal); T63.301A Toxic effect of unspecified spider venom, accidental (unintentional), initial encounter; M54.5 Low back pain; E78.5 Hyperlipidemia, unspecified; D86.9 Sarcoidosis, unspecified; Z12.11 Encounter for screening for malignant neoplasm of colon
CPT/HCPCS: 36415; 80053; 80061; 81003; 81015; 85025; G0103

== ENCOUNTER 2017-03-16 14:23 | Outpatient (CLI) | payer MEDICARE | END 2017-03-16 14:24 | disposition home or self-care (01) | LOC: NAV LABSP 14:23 | PROVIDERS: ATTEND Internal Medicine | DX: Z12.5 Encounter for screening for malignant neoplasm of prostate (principal); Z12.11 Encounter for screening for malignant neoplasm of colon; M54.5 Low back pain; E78.5 Hyperlipidemia, unspecified; D86.9 Sarcoidosis, unspecified | CPT/HCPCS: 82274 ==

== ENCOUNTER 2017-09-04 10:57 | Emergency (ER) | payer MEDICARE | END 2017-09-04 11:25 | disposition home or self-care (01) | LOC: NAV ERS 10:57 | DX: R21 Rash and other nonspecific skin eruption (principal); J44.9 Chronic obstructive pulmonary disease, unspecified | CPT/HCPCS: 99282 ==

== ENCOUNTER 2020-10-07 10:20 | Outpatient (CLI) | payer MEDICARE ==
--- NOTE | 2020-10-07 10:42 | RAD ---
EXAM: Chest 2 views: HISTORY: Bronchitis COMPARISON: 11/17/2007 FINDINGS: There is a normal-sized cardiomediastinal silhouette. Scarring is seen in the lateral aspect of the mid right lung. There is volume loss in the right apex with shift of the trachea to the right. Opacity in the right apex likely represents a small amount of pleural thickening and atelectasis of t he right upper lobe. There may be a small right pleural effusion. There is a 2.9 cm nodular opacity in the right upper lobe. There increased interstitial markings in the right upper lobe surrounding th e area of nodularity. No acute osseous abnormality. IMPRESSION: Nodular opacity in the right upper lobe. A CT the chest with contrast is recommended for further eval uation.
== END 2020-10-07 10:21 | disposition home or self-care (01) ==
LOC: NAV RAD 10:20
PROVIDERS: ATTEND Internal Medicine
DX: J40 Bronchitis, not specified as acute or chronic (principal); R91.8 Other nonspecific abnormal finding of lung field
CPT/HCPCS: 71046

== ENCOUNTER 2020-10-09 08:04 | Outpatient (CLI) | payer MEDICARE ==
[2020-10-09 08:57] LABS: Anion Gap 14 mmol/L (10-20); BUN (Urea Nitrogen) 14 mg/dL (8.4-25.7); Calc. Creatinine Clearance 0 mL/min (70-130); Calcium 8.8 mg/dL (7.8-10.44); Carbon Dioxide 25 mmol/L (23-31); Chloride 103 mmol/L (98-107); Glucose 84 mg/dL (80-115); Potassium 4.1 mmol/L (3.5-5.1); Sodium 138 mmol/L (136-145)
[2020-10-09] MEDS ORDERED: Iopamidol 370 76% 100 ML VIAL ONE (09:00)
--- NOTE | 2020-10-09 10:16 | CT ---
EXAM: CT of the chest with contrast HISTORY: Chest mass COMPARISON: Chest x-rays 10/07/2020 and 06/26/2015 TECHNIQUE: Multiple contiguous axial images were obtained in a CT the chest with contrast. Coronal an d sagittal reformats were performed. FINDINGS: HEART: Normal in size without focal cardiac abnormality MEDIASTINUM: No hilar or mediastinal lymphadenopathy. Multiple calcified hilar and mediastinal lymph nodes are seen. LUNGS: Increased interstitial lung markings are seen in the right upper lobe. This is associated with volume loss. There is a large bulla in the right apex. There is a central 2.4 cm mass within the bulla. Calcified granulomas are seen in the right lung. 2 areas of peripheral nodularity are seen in the left upper lobe measuring up to 1.2 cm in size. PLEURAL SPACE: A pleural-based calcified plaque is seen along the lateral aspect of the right thorax. No pneumothorax or pleural effusion. There is an area of pleural thickening in the left apex which contains one small calcification. CHEST WALL SOFT TISSUES: Unremarkable OSSEOUS STRUCTURES: No acute abnormality. VISUALIZED SUBDIAPHRAGMATIC STRUCTURES: Calcified granulomas in the spleen. IMPRESSION: The findings in the chest are most likely sequelae from prior infectious process with scarring and ca vitation. The masslike area in the central aspect of the bulla is likely benign and may represent a residual lung fragment or debris from the prior infection. A follow-up examination in 3-6 months is r ecommended to ensure stability. Alternatively, a PET CT could be performed to evaluate for hypermetabolic activity
== END 2020-10-09 08:05 | disposition home or self-care (01) ==
LOC: NAV CT 08:04
PROVIDERS: ATTEND Internal Medicine
DX: R91.8 Other nonspecific abnormal finding of lung field (principal)
CPT/HCPCS: 36415; 71260; 80048; Q9967

== ENCOUNTER 2022-07-09 16:54 | Emergency (ER) | payer MEDICARE | END 2022-07-09 17:26 | disposition home or self-care (01) | LOC: NAV ERS 16:54 | DX: J06.9 Acute upper respiratory infection, unspecified (principal); J44.9 Chronic obstructive pulmonary disease, unspecified | CPT/HCPCS: 99283 ==

== ENCOUNTER 2022-07-28 16:44 | Emergency (ER) | payer MEDICARE | END 2022-07-28 17:20 | disposition home or self-care (01) | LOC: NAV ERS 16:44 | DX: J42 Unspecified chronic bronchitis (principal); Z79.899 Other long term (current) drug therapy | CPT/HCPCS: 99283 ==

== ENCOUNTER 2022-08-17 15:41 | Emergency (ER) | payer MEDICARE ==
[~2022-08-17 15:41] MED LIST: Iopamidol 370 76% 100 ML VIAL ONE
[2022-08-17 17:02] LABS: #Basophils 0.1 thou/uL (0.0-0.2); #Eosinphils 0.2 thou/uL (0.0-0.7); #Lymphocytes 0.9 thou/uL (1.20-3.40); #Monocytes 0.5 thou/uL (0.11-0.59); #Neutrophils 3.4 thou/uL (1.40-6.50); %Basophils 1.3 % (0.0-1.0); %Eosinophils 4.8 % (0.0-10.0); %Lymphocytes 17.5 % (21.0-51.0); %Monocytes 9.2 % (0.0-10.0); %Neutrophils 67.3 % (42.0-75.0); Hemoglobin 10.5 g/dL (14.0-18.0); Mean Corpuscular HGB CONC 30.4 g/dL (32.0-36.0); Mean Corpuscular Hemoglobin 27.6 pg (27.0-31.0); Mean Corpuscular Volume 90.9 fl (78.0-98.0); Mean Platelet Volume 6.1 fL (7.4-10.4); Platelet Count 277 10x3/uL (130-400); RBC Distribution Width 13.8 % (11.5-14.5); Red Blood Cell (RBC) Count 3.79 mill/uL (4.70-6.10); White Blood Cell (WBC) Count 5.1 10x3/uL (4.8-10.8)
[2022-08-17 17:33] LABS: ALT (SGPT) 17 U/L (8-55); AST (SGOT) 21 U/L (5-34); Albumin 3.2 g/dL (3.4-4.8); Alkaline Phosphatase 80 U/L (40-110); Anion Gap 17 mmol/L (10-20); BUN (Urea Nitrogen) 12 mg/dL (8.4-25.7); Bilirubin, Total 0.2 mg/dL (0.2-1.2); Calc. Creatinine Clearance 0 mL/min (70-130); Calcium 9.1 mg/dL (7.8-10.44); Carbon Dioxide 25 mmol/L (23-31); Chloride 100 mmol/L (98-107); Estimated GFR 95; Globulin 5.4 g/dL (2.4-3.5); Glucose 86 mg/dL (80-115); Lipase 13 U/L (8-78); Potassium 4.1 mmol/L (3.5-5.1); Protein, Total 8.6 g/dL (5.8-8.1); Sodium 138 mmol/L (136-145)
[2022-08-17] MEDS ORDERED: Sodium Chloride 0.9% 1,000 ML ONE (18:17)
== END 2022-08-17 19:20 | disposition left against medical advice (07) ==
LOC: NAV ERS 15:41
DX: J18.9 Pneumonia, unspecified organism (principal); R91.1 Solitary pulmonary nodule; J44.9 Chronic obstructive pulmonary disease, unspecified
CPT/HCPCS: 71046; 71275; 80053; 83690; 84484; 85025; 85379; 93005; 96374; J1956; J7050; Q9967

== ENCOUNTER 2023-04-09 15:50 | Emergency (ER) | payer MEDICARE ==
[2023-04-09 16:50] LABS: #Eosinphils 0.3 thou/uL (0.0-0.7); #Lymphocytes 0.6 thou/uL (1.20-3.40); #Monocytes 0.4 thou/uL (0.11-0.59); #Neutrophils 2.7 thou/uL (1.40-6.50); %Basophils 0.9 % (0.0-1.0); %Eosinophils 6.7 % (0.0-10.0); %Lymphocytes 15.5 % (21.0-51.0); %Monocytes 8.9 % (0.0-10.0); Hematocrit 32.3 % (42.0-52.0); Mean Corpuscular HGB CONC 31.1 g/dL (32.0-36.0); Mean Corpuscular Hemoglobin 26.8 pg (27.0-31.0); Mean Corpuscular Volume 86.1 fl (78.0-98.0); Mean Platelet Volume 5.2 fL (7.4-10.4); Platelet Count 233 10x3/uL (130-400); RBC Distribution Width 13.8 % (11.5-14.5); Red Blood Cell (RBC) Count 3.75 mill/uL (4.70-6.10)
[2023-04-09 16:57] LABS: INR-International Normal Ratio 1.2; Prothrombin Time 15.5 sec (12.0-14.7)
[2023-04-09 16:58] LABS: PTT 37.2 sec (22.9-36.1)
[2023-04-09 17:05] LABS: ALT (SGPT) 11 U/L (8-55); AST (SGOT) 14 U/L (5-34); Albumin 2.8 g/dL (3.4-4.8); Alkaline Phosphatase 63 U/L (40-110); Anion Gap 11 mmol/L (10-20); BUN (Urea Nitrogen) 10 mg/dL (8.4-25.7); Bilirubin, Total 0.3 mg/dL (0.2-1.2); Calc. Creatinine Clearance 0 mL/min (70-130); Calcium 8.6 mg/dL (7.8-10.44); Carbon Dioxide 24 mmol/L (23-31); Chloride 104 mmol/L (98-107); Estimated GFR 97; Globulin 4.4 g/dL (2.4-3.5); Glucose 127 mg/dL (80-115); Potassium 3.5 mmol/L (3.5-5.1); Protein, Total 7.2 g/dL (5.8-8.1); Sodium 135 mmol/L (136-145)
[2023-04-09] MEDS ORDERED: Dexamethasone 4 mg/ml Vial ONE (17:14)
[2023-04-09] MEDS ORDERED: Ipratropium/Albuterol 3 ML NEB ONE (17:14)
[2023-04-09] MEDS ORDERED: Ventolin HFA Inhaler 60 PUFF INHALER ONE (17:25)
== END 2023-04-09 17:46 | disposition home or self-care (01) ==
LOC: NAV ERS 15:50
DX: J44.1 Chronic obstructive pulmonary disease with (acute) exacerbation (principal); R91.1 Solitary pulmonary nodule; Z87.891 Personal history of nicotine dependence
CPT/HCPCS: 71046; 80053; 85025; 85610; 85730; 93005; J1100; J7620